=== PATIENT | male | born 1975 | race Caucasian/White ===

== ENCOUNTER 2021-02-08 06:09 | Day surgery (SDC) | payer BC, SELFPAY ==
[~2021-02-08] VITALS: Ht 190.5 cm; Wt 167.8 kg
[2021-02-08] MEDS ORDERED: ACETAMINOPHEN I.V. 1000 MG 0 ML IV ONE (07:08)
[2021-02-08] MEDS ORDERED: IOPAMIDOL 50 ML VIAL IV ONE (07:28)
[2021-02-08] MEDS ORDERED: fentaNYL CITRATE 250 MCG/5 ML AMP IV ONE (07:28)
[2021-02-08] MEDS ORDERED: PROPOFOL 200MG/ 20ML VIAL (DIPRIVAN) IV ONE (07:28)
[2021-02-08] MEDS ORDERED: NS IRRIG SOLN 5000 ML IR ONE (07:28)
[2021-02-08] MEDS ORDERED: ONDANSETRON HCL 4 MG/2 ML VIAL IVP ONE (07:28)
[2021-02-08] MEDS ORDERED: LR 1,000 ML IV.SOLN IV ONE (07:28)
[2021-02-08] MEDS ORDERED: DESFLURANE 15 MIN GAS INH ONE (07:28)
[2021-02-08 10:41] VITALS: BP_SYST 123
== END 2021-02-08 11:10 | disposition home or self-care (01) ==
LOC: SDS 06:09 → SMU 06:13 → SDS 11:10
PROVIDERS: ATTEND Urology
DX: N20.2 Calculus of kidney with calculus of ureter (principal); I10 Essential (primary) hypertension; E11.9 Type 2 diabetes mellitus without complications; E66.9 Obesity, unspecified; Z79.899 Other long term (current) drug therapy; Z20.822 Contact with and (suspected) exposure to COVID-19
CPT/HCPCS: 52356; 82360; 82962; 88300; C1758; C1769; C2625; J2405; J2704; J3010; J7120; Q9967 ×2; U0003; 76000; J0131